=== PATIENT | male | born 1955 | race Caucasian/White ===

== ENCOUNTER → 2017-01-10 | Outpatient (CLI) | payer MEDICARE, OTHER, SELFPAY | PROVIDERS: Family Provider Family Medicine Geriatric Medicine; PCP Family Medicine Geriatric Medicine; Visit Provider Family Medicine Geriatric Medicine | DX: M25.569 Pain in unspecified knee (principal) | CPT/HCPCS: 73721 ==

== ENCOUNTER 2020-01-28 08:39 | Day surgery (SDC) | payer MEDICARE, BC, SELFPAY ==
--- NOTE | 2020-01-28 | PATH_ITS ---
[facility] Accession Number: [id number] . 01 Material submitted: . PART A: gastrointestinal site - GASTRIC POLYPS PART B: esophagus, E-G Junction - GE JUNCTION PART C: colon - COLON POLYPS AT 40CM . 02 Diagnosis: A. Stomach, Polyps, Biopsies: Fundic gland polyps. No evidence of Helicobacter on H/E stain. Negative for intestinal metaplasia. Negative for dysplasia and malignancy. . B. Gastroesophageal Junction, Biopsy: Squamocolumnar junctional mucosa with no diagnostic abnormality. Negative for intestinal metaplasia. Negative for dysplasia and malignancy. . C. Colon, Polyps at 40 cm, Biopsy: Tubular adenoma in one of multiple fragments. Hyperplastic polyp in three fragments. [facility] 02/01/2020 0943 Local . 02 Electronically signed: . Gaby Grovre MD, Pathologist NPI- [id number] . 01 Gross description: . A. Specimen A is received in formalin, labeled gastric polyps and consists of five olja-pink fragments of soft tissue, measuring 1.0 x 0.8 x 0.2 cm in aggregate. The specimen is entirely submitted in cassette A1. B. Specimen B is received in formalin, labeled GE junction biopsy and consists of multiple loja fragments of soft tissue, measuring 1.0 x 0.7 x 0.2 cm in aggregate. The specimen is entirely submitted in cassette B1. C. Specimen C is received in formalin, labeled polyp at 40 cm and consists of multiple loja fragments of soft tissue, measuring 1.0 x 1.0 x 0.2 cm in aggregate. The specimen is entirely submitted in cassette C1. ([id number]) /[facility] 01/29/2020 1658 Local . 02 Pathologist provided ICD-10: D12.6 . 02 CPT . 899646, 151272, 832558 Performed at: 01 [facility] [address] [place] [address], [place], [place] [id number] MD Ryan Rodriguez MD Phone: [phone] Performed at: 02 [facility] [place] [address] [place], [place] [id number] MD Gaby Grover MD Phone: [phone]
[2020-01-28] MEDS: LACTATED RINGERS 1,000 ML 200 ML IV (09:02)
[2020-01-28 09:03] VITALS: BP 149/87; PULSE 80; RESP 16; TEMP 37.6; O2SAT 97; BMI 28.5
--- NOTE | 2020-01-28 10:18 | PM.HP.1 ---
History of Present Illness History of Present Illness Date Patient Seen: 01/28/20 Time Patient Seen: 10:18 Chief complaint: SCREENING COLONOSCOPY Narrative: Patient is a gentleman with biopsy-proven Toribio's esophagus and history of polyps. Brother had colon cancer. He is here for EGD to survey his Toribio's and colonoscopy. Last colonoscopy was 4 years ago. Last EGD was 2 years ago. He was diagnosed with Toribio's esophagus at that EGD 2 years ago. Patient History Medical History (Updated 01/28/20 @ 10:20 by Patricio Bledsoe MD) Barretts esophagus (Acute) Hypertension (Acute) PVC (premature ventricular contraction) (Acute) Family & Social History Family History (Updated 01/28/20 @ 10:21 by Patricio Bledsoe MD) Brother Cancer Social History: household members spouse Tobacco & Substance use: Smoking Status Never smoker alcohol intake current alcohol intake frequency 0-2 drinks per day Substance Use Type does not use Meds Home Medications and Allergies Home Medications Medication Instructions Recorded Confirmed Type HYDROCODONE/ACETAMINOPHEN 1 tab PO DAILY PRN #0 02/16/11 01/28/20 History (Hydrocodon-Acetaminoph 7.5-325) Prilosec 20 mg PO DAILY 09/30/17 01/28/20 History losartan 50 mg PO DAILY 09/30/17 01/28/20 History Allergies Allergy/AdvReac Type Severity Reaction Status Date / Time No Known Drug Allergies Allergy Verified 01/28/20 08:57 Review of Systems Review of Systems ROS: Yes All systems reviewed with the patient and are negative except as otherwise documented Exam Vital Signs (past 8 hours): - 01/28/20 09:03 Temperature 99.6 F Pulse Rate 80 Respiratory Rate 16 Blood Pressure 149/87 H Pulse Oximetry 97 Oxygen Delivery Method Room Air Narrative Exam Narrative: Pleasant cooperative patient no apparent distress. Lungs are clear to auscultation. No rales or rhonchi. Heart regular rate and rhythm no murmur gallop. Abdomen is soft nontender without mass. No obvious hernias. Patient is alert and oriented x3. Assessment & Plan Assessment and plan (1) Barretts esophagus: Status: Acute Assessment & Plan narrative: The patient for a screening colonoscopy and surveillance EGD. I have discussed the procedures with them. Risks of bleeding, perforation which would necessitate major operation, failure to find remove all lesions, the potential tattoo were all discussed. All questions were answered. They wished to proceed.
[2020-01-28] MEDS: MIDAZOLAM 5 MG/5 ML VIAL IV (10:22)
[2020-01-28] MEDS: fentaNYL 250 MCG/5 ML INJ IV (10:22)
--- NOTE | 2020-01-28 10:23 | PM.PREOP ---
Pre-operative Note COVID-19 COVID-19 status: Negative Result date/Date tested (Pos, Neg/Pending): 01/25/20 Interval Note History & Physical reviewed/Exam performed by Physician: Yes Changes to H&P: No ASA Class (for procedural sedation): II
--- NOTE | 2020-01-28 11:12 | PM.OP.ENDO ---
Operative Date/Time/Diagnoses Date of procedure: 01/28/20 Time of procedure: 11:12 Pre-op diagnosis: History of Toribio's esophagus here for surveillance. Last EGD 2 years ago. History of polyps and a family history (brother) of colon cancer. Last colonoscopy 4 years ago. Post-op diagnosis: same (Two colonic polyps. Both small. Esophageal ulcers at the GE junction. Evidence of Toribio's esophagus. Small esophageal diverticulum near the GE junction. Gastric polyps appeared to be benign fundic polyps.) Procedure & Clinicians Study performed: EGD with cold biopsy. Colonoscopy with cold biopsy. Same procedure as scheduled: Yes Indications: Surveillance of Toribio's. Screening in a high risk patient for colon cancer. Procedure Notes SCOAP/Timeout: Performed Procedure in detail: The patient had topical anesthetic applied to oropharynx. She was placed in left lateral decubitus position and underwent IV sedation directed by the surgeon consisting of fentanyl and Versed. A bite block was inserted and the scope was advanced through it into the esophagus. The esophagus was unremarkable. GE junction was noted at 39 cm from the incisors. There was linear ulcers in the region. There was some minor heaped up tissue just below these ulcers. There was a very small indentation just above the GE junction suggestive of a superficial esophageal diverticulum. The. The stomach insufflated well. There were a large number of polyps in the stomach.. The pyloric channel was widely patent. The duodenum was unremarkable to the 4th part. The scope was brought back into the stomach and retroflexed. The proximal stomach remarkable for small hiatal hernia. Biopsies were taken randomly of a few polyps to confirm the suspicion of benign fundic polyps. The scope was straightened and brought out through the esophagus again. Multiple biopsies were taken at the GE junction and the minor heaped up tissue in the region. No other lesions were seen. The scope was removed and the patient tolerated the procedure well. The patient was repositioned. The patient was placed in the left lateral decubitus position and underwent additional IV sedation directed by the surgeon consisting of fentanyl and Versed. Digital exam was remarkable for a moderately enlarged prostate. There were no palpable masses.. The scope was inserted and advanced through the rectum into the sigmoid, descending, transverse, and ascending colon. The patient had a small polyp noted going in that on egress was at 50 cm from the anal verge. It was biopsied and removed. The patient had extensive sigmoid diverticulosis. The patient had to be repositioned a pressure applied to make our way to the cecum.. The cecum was reached identified by the ileocecal valve and the appendiceal opening. . The scope was gradually brought out. One additional Polyp was found at near the 1st biopsy site and it was removed and placed in the same container as the 1st polyp.. The scope ultimately was retroflexed in the rectum. The appearance was normal. The scope was removed and the patient tolerated the procedure well. The prep was very good. Scope withdrawal time: 7.5 minutes(9 minutes total) Sedation minutes: 47 Findings: Toribio's esophagus, diverticulosis (Sigmoid), polyp (Two small polyps) and other findings (Esophageal ulcers and small esophageal diverticulum near the GE junction) Specimen(s): other (Polyps) Complications: none Post-procedure Recommendations: Colonscopy in 5 years, Start medication(s) (Proton pump inhibitors will increase dose to 20 mg of Prilosec twice a day.) and Other recommendation (EGD in about 3 months to confirm healing of the ulcers at the GE junction.) Follow up: months (3) Disposition: PACU
[2020-01-28 11:15] VITALS: BP 101/78; PULSE 97; RESP 20; TEMP 36.2; O2SAT 96
[2020-01-28 11:20] VITALS: BP 102/71; PULSE 75; RESP 20; O2SAT 94
[2020-01-28 11:25] VITALS: BP 99/76; PULSE 82; RESP 20; O2SAT 93
[2020-01-28 11:30] VITALS: BP 108/75; PULSE 74; RESP 22; O2SAT 95
[2020-01-28 11:39] VITALS: BP 100/72; PULSE 67; RESP 20; TEMP 36.6; O2SAT 95
== END 2020-01-28 12:19 | disposition home or self-care (01) ==
PROVIDERS: Family Provider Family Medicine Geriatric Medicine; PCP Family Medicine; Referring Provider Specialist; Visit Provider Specialist
PROC: 0DJ08ZZ Inspection of Upper Intestinal Tract, Via Natural or Artificial Opening Endoscopic (ICD-10-PCS; CPT 43235; principal; 2020-01-28 09:45)
PROC: 0DJD8ZZ Inspection of Lower Intestinal Tract, Via Natural or Artificial Opening Endoscopic (ICD-10-PCS; CPT 45378; 2020-01-28 09:45)
DX: Z12.11 Encounter for screening for malignant neoplasm of colon (principal); Z80.0 Family history of malignant neoplasm of digestive organs; Z86.010 Personal history of colon polyps; K57.30 Diverticulosis of large intestine without perforation or abscess without bleeding; K22.70 Barrett's esophagus without dysplasia; K44.9 Diaphragmatic hernia without obstruction or gangrene; D12.6 Benign neoplasm of colon, unspecified; K31.7 Polyp of stomach and duodenum
CPT/HCPCS: 45380; 43239; 99152; 99153; J2250; J3010

== ENCOUNTER 2020-05-26 07:59 | Day surgery (SDC) | payer MEDICARE, BC, SELFPAY ==
--- NOTE | 2020-05-26 | PATH_ITS ---
[facility] Accession Number: [id number] . 01 Material submitted: . esophagus, E-G Junction - GE JUNCTION . 01 Clinical history: . HX OF WILKINSON'S . 02 Diagnosis: Gastroesophageal Junction, Biopsy: Squamocolumnar junctional mucosa with specialized intestinal metaplasia, consistent with Wilkinson's esophagus. Negative for dysplasia and malignancy. [facility] 05/31/2020 1256 Local . 02 Electronically signed: . Gaby Grover MD, Pathologist NPI- [id number] . 01 Gross description: . GE JUNCTION: Received in formalin are minute fragment(s) of loja, soft tissue measuring 0.4 x 0.4 x 0.1 cm in aggregate submitted entirely in 1 cassette(s) /[facility] 05/27/2020 0839 Local . 02 Pathologist provided ICD-10: K22.70 . 02 CPT . 082747 Performed at: 01 [facility] [address] [facility], [place], [place] [id number] MD Ryan Rodriguez MD Phone: [phone] Performed at: 02 [facility] [address] [place], [place] [id number] MD Gaby Grover MD Phone: [phone]
[2020-05-26 08:25] VITALS: BP 151/82; PULSE 64; RESP 18; TEMP 36.8; O2SAT 97; BMI 29.1
[2020-05-26] MEDS: LACTATED RINGERS 1,000 ML 200 ML IV (08:41)
[2020-05-26] MEDS: LIDOCAINE 4% SOLN 50 ML 20 ML TOP (09:51)
--- NOTE | 2020-05-26 09:56 | PM.HP.1 ---
History of Present Illness History of Present Illness Date Patient Seen: 05/26/20 Time Patient Seen: 09:44 Chief complaint: EGD Narrative: Patient is a gentleman here for a repeat EGD. He had an esophageal ulcer which has been under treatment for 3 months. This is to confirm healing. Patient is known Toribio's esophagus. Patient History Medical History Barretts esophagus Hypertension PVC (premature ventricular contraction) Family & Social History Family History Brother Cancer Social History: household members spouse Tobacco & Substance use: Smoking Status Never smoker alcohol intake current alcohol intake frequency 0-2 drinks per day Substance Use Type does not use Meds Home Medications and Allergies Home Medications Medication Instructions Recorded Confirmed Type HYDROCODONE/ACETAMINOPHEN 1 tab PO DAILY PRN #0 02/16/11 05/26/20 History (Hydrocodon-Acetaminoph 7.5-325) losartan 50 mg PO DAILY 09/30/17 05/26/20 History omeprazole 20 mg PO BID #60 cap 01/28/20 05/26/20 Rx Allergies Allergy/AdvReac Type Severity Reaction Status Date / Time No Known Drug Allergies Allergy Verified 01/28/20 08:57 Review of Systems Review of Systems ROS: Yes All systems reviewed with the patient and are negative except as otherwise documented Exam Vital Signs (past 8 hours): - 05/26/20 08:25 Temperature 98.2 F Pulse Rate 64 Respiratory Rate 18 Blood Pressure 151/82 H Pulse Oximetry 97 Oxygen Delivery Method Room Air Narrative Exam Narrative: Pleasant cooperative patient no apparent distress. Lungs are clear to auscultation. No rales or rhonchi. Heart regular rate and rhythm no murmur gallop. Abdomen is soft nontender without mass. No obvious hernias. Patient is alert and oriented x3. Assessment & Plan Assessment & Plan narrative: Patient here for an EGD. He would like in liquids vocal cords as well. I have discussed the procedure including risks of bleeding and perforation. He appears to understand wishes to proceed.
--- NOTE | 2020-05-26 09:57 | PM.PREOP ---
Pre-operative Note COVID-19 COVID-19 status: Negative Result date/Date tested (Pos, Neg/Pending): 05/25/20 Interval Note History & Physical reviewed/Exam performed by Physician: Yes Changes to H&P: No ASA Class (for procedural sedation): II
[2020-05-26] MEDS: MIDAZOLAM 5 MG/5 ML VIAL IV (10:05)
[2020-05-26] MEDS: fentaNYL 250 MCG/5 ML INJ IV (10:06)
--- NOTE | 2020-05-26 10:11 | PM.OP.ENDO ---
Operative Date/Time/Diagnoses Date of procedure: 05/26/20 Time of procedure: 10:11 Pre-op diagnosis: Toribio's esophagus. History of ulcer of the distal esophagus. Post-op diagnosis: same Procedure & Clinicians Study performed: EGD with cold biopsy Same procedure as scheduled: Yes Indications: Surveillance. Confirm healing of ulcer which was asymptomatic. Surgeon: Patricio Bledsoe Procedure Notes SCOAP/Timeout: Performed Procedure in detail: The patient had topical anesthetic applied to oropharynx. She was placed in left lateral decubitus position and underwent IV sedation directed by the surgeon consisting of fentanyl and Versed. A bite block was inserted and the scope was advanced through it into the esophagus. I noted normal structures around the vocal cords. The esophagus was unremarkable until I reached to the GE junction where there were tongues of red tissue extending up above the junction. These were consistent with his known diagnosis of Toribio's esophagus.. GE junction was noted at 39 cm from the incisors. The stomach insufflated well. There were no lesions seen in the body, antrum or at the incisura. The pyloric channel was patent. The duodenum was unremarkable to the 4th part. The scope was brought back into the stomach and retroflexed. The proximal stomach appeared to have a small hiatal hernia. Changes at the GE junction could be seen.. The scope was straightened and brought out through the esophagus again. Biopsies were taken in the region of the GE junction. The scope was removed and the patient tolerated the procedure well. Scope withdrawal time: Not applicable Sedation minutes: 14 Findings: Toribio's esophagus and hiatal hernia Specimen(s): other (GE junction biopsies) Complications: none Post-procedure Recommendations: EGD in 3 years and Continue medication(s) (But only take omeprazole once a day.) Plan for aftercare: Follow-up with primary care provider Follow up: as needed Disposition: PACU
[2020-05-26 10:16] VITALS: BP 113/71; PULSE 51; RESP 8; TEMP 37.2; O2SAT 95
[2020-05-26 10:21] VITALS: BP 103/65; PULSE 67; RESP 12; O2SAT 96
[2020-05-26 10:27] VITALS: BP 131/72; PULSE 65; RESP 14; O2SAT 96
[2020-05-26 10:30] VITALS: BP 142/77; PULSE 65; RESP 14; TEMP 36.6; O2SAT 96
[2020-05-26 10:35] VITALS: BP 138/78; PULSE 78; RESP 16; TEMP 36.6; O2SAT 97
== END 2020-05-26 10:50 | disposition home or self-care (01) ==
PROVIDERS: Family Provider Family Medicine Geriatric Medicine; PCP Family Medicine; Referring Provider Specialist; Visit Provider Specialist
PROC: 0DJ08ZZ Inspection of Upper Intestinal Tract, Via Natural or Artificial Opening Endoscopic (ICD-10-PCS; CPT 43235; principal; 2020-05-26 09:15)
DX: K22.70 Barrett's esophagus without dysplasia (principal); Z09 Encounter for follow-up examination after completed treatment for conditions other than malignant neoplasm; Z87.19 Personal history of other diseases of the digestive system; I10 Essential (primary) hypertension; I49.3 Ventricular premature depolarization; K44.9 Diaphragmatic hernia without obstruction or gangrene
CPT/HCPCS: 43239; 99152; J2250; J3010